=== PATIENT | male | born 1980 | race Caucasian/White ===

== ENCOUNTER 2019-01-28 21:44 | Emergency (ER) | payer OTHER ==
[2019-01-28 21:51] VITALS: BP 146/90
[2019-01-28] MEDS ORDERED: PROPARACAINE 0.5% 15 ML OPHT DROP ONE (22:12)
[2019-01-28] MEDS ORDERED: FLUORESCEIN SODIUM 1 MG STRIP OP ONE (22:12)
[2019-01-28] MEDS ORDERED: POLYMYXIN B SULFATE/TMP 10 ML OPHT.BTL LEFTEYE ONE (22:53)
--- NOTE | 2019-01-28 22:53 | EDPHY ---
H & P Time Seen by Provider: 01/28/19 22:19 HPI/ROS: Chief complaint: Foreign body in left eye History of present illness: This is a 38-year-old male who presents to the emergency department concerned he has a foreign body in his left eye. He was using a perlite grinder wheel when he believes a piece of metal was thrown off into his eye. He was wearing safety glasses but it got around the glasses. He reports the sensation of something in his eye. He is tearing. He denies any visual disturbances. He is not currently wearing contacts. He has never had eye surgery. Smoking Status: Former smoker Physical Exam: General: Alert, nontoxic. Skin: No erythema or edema of the periorbital tissues. Eyes: A foreign body is noted at the 5 o'clock position over the iris of the left eye. No subconjunctival hemorrhage. No hyphema. PERRLA. EOM intact. Constitutional: Initial Vital Signs Temperature (C) 36.8 C 01/28/19 21:48 Heart Rate 94 01/28/19 21:48 Respiratory Rate 16 01/28/19 21:48 Blood Pressure 146/90 H 01/28/19 21:48 O2 Sat (%) 36 L 01/28/19 21:48 Allergies/Adverse Reactions: Poultry [chicken] Allergy (Verified 01/28/19 21:47) Home Medications: Medication Instructions Recorded lamOTRIGine [Lamotrigine] 01/28/19 MDM/Departure - MDM Procedures: Visual acuities are obtained, 20/20 left eye, 20/20 right eyes, 20/20 bilaterally Slit lamp is used after staining patient's eye with flourescein. Foreign body is again noted. Some surrounding evidence of abrasion. No Kerry sign. Medications Given: Discontinued Medications Polymyxin/Trimethoprim Sulfate (Polytrim Opht Drops) 1 drops LEFTEYE EDNOW ONE Stop: 01/28/19 22:54 Last Admin: 01/28/19 23:28 Dose: 1 drop ED Course/Re-evaluation: Patient seen under the supervision of my secondary supervising physician Dr. Bryce Wilson. Patient presents concerned he has a foreign body in his eye. The foreign body is located, initially a cotton tip swab was used to try to dislodge it unsuccessfully. Using the bevel of an angiocath it was easily removed. A rust ring did appear to remain. I will start him on Polytrim eye antibiotics. He is referred to ophthalmology for further care. Home care is discussed. Return precautions are given. Patient voiced understanding and agreement with plan. Differential Diagnosis: Included but not limited to corneal abrasion, foreign body, doubtful globe rupture - Depart Disposition: Home, Routine, Self-Care Clinical Impression: Eye foreign body Qualifiers: Encounter type: initial encounter Laterality: left Qualified Code(s): T15.92XA - Foreign body on external eye, part unspecified, left eye, initial encounter Condition: Good Instructions: Polymyxin B/Trimethoprim (Into the eye), Eye Foreign Body (ED) Additional Instructions: Please call and arrange a follow-up appointment with an eye doctor tomorrow for continued care Use the eye antibiotic, 1 drop in the left eye every 4 hr for the next week unless told otherwise by the eye doctor If symptoms worsen or new symptoms develop return to the emergency room for recheck Referrals: Es Rush MD [Medical Doctor] - As per Instructions
[2019-01-29] MEDS ORDERED: POLYMYXIN B SULFATE/TMP 10 ML OPHT.BTL LEFTEYE ONE (22:53)
== END 2019-01-28 23:29 | disposition home or self-care (01) ==
PROC: 08C1XZZ Extirpation of Matter from Left Eye, External Approach (ICD-10-PCS; principal; 2019-01-28)
DX: T15.92XA Foreign body on external eye, part unspecified, left eye, initial encounter (principal); W31.1XXA Contact with metalworking machines, initial encounter; Y28.8XXA Contact with other sharp object, undetermined intent, initial encounter; Z87.891 Personal history of nicotine dependence